=== PATIENT | female | born 1995 | race African-American/Black ===

== ENCOUNTER 2017-07-30 20:54 | Emergency (ER) | payer SELFPAY | END 2017-07-30 22:55 | disposition home or self-care (01) | LOC: SCSER 20:54 | DX: J02.0 Streptococcal pharyngitis (principal); F41.9 Anxiety disorder, unspecified | CPT/HCPCS: 87430; 99283 ==

== ENCOUNTER 2017-09-17 08:40 | Emergency (ER) | payer SELFPAY ==
[2017-09-17 09:09] LABS: Bilirubin Negative (Negative); Blood, Urine Small (Negative); Clarity Slightly Cloudy (Clear); Glucose, Urine (Dipstick) Negative (Negative); Leukocyte Large (Negative); Nitrite Negative (Negative); Protein, Urine (Dipstick) 30 mg/dL (Neg-Trace); Specific Gravity, Urine 1.025 (1.005-1.030); Urobilinogen 0.2 mg/dL (0.2-1.0)
[2017-09-17 09:11] LABS: Pregnancy Test - Urine (BHCG) Negative (Negative); Pregu Control Background? CLEAR/WHITE (CLR/WHITE); Pregu Control Bar Appear? YES (CONTROL BAR); Specific Gravity 1.025 (1.002-1.036)
[2017-09-17 09:16] LABS: WBC/HPF 21-50 HPF (0-3)
[2017-09-17 09:17] LABS: Bacteria/HPF 1+ HPF (None Seen)
[2017-09-18 23:16] LABS: Chlamydia by PCR Not Detected (NotDetected); GC by PCR Not Detected (NotDetected)
== END 2017-09-17 10:00 | disposition home or self-care (01) ==
LOC: SCSER 08:40
DX: B37.3 Candidiasis of vulva and vagina (principal); N39.0 Urinary tract infection, site not specified; F41.9 Anxiety disorder, unspecified
CPT/HCPCS: 81003; 81015; 81025; 87077; 87086; 87480; 87491; 87510; 87591; 87660; 99283

== ENCOUNTER 2017-11-21 13:37 | Emergency (ER) | payer SELFPAY ==
--- NOTE | 2017-11-21 14:25 | RAD ---
LEFT KNEE 4 VIEWS: HISTORY: Injury, left knee pain. FINDINGS/IMPRESSION: No acute fracture or dislocation is identified. POS: OFF
[2017-11-21] MEDS ORDERED: Ketorolac Tromethamine 30 MG/ML VIAL ONE (14:56)
== END 2017-11-21 15:08 | disposition home or self-care (01) ==
LOC: ERS 13:37
DX: S83.92XA Sprain of unspecified site of left knee, initial encounter (principal); F41.9 Anxiety disorder, unspecified; X50.1XXA Overexertion from prolonged static or awkward postures, initial encounter; Y93.01 Activity, walking, marching and hiking
CPT/HCPCS: 96372; J1885

== ENCOUNTER 2017-11-25 18:06 | Observation (INO) | payer SELFPAY ==
[~2017-11-25 18:06] MED LIST: ISOVUE-370 76%-LOCM 1 ML ONE
[2017-11-25] MEDS ORDERED: Morphine 4 MG/ML VIAL ONE ×3 (18:16→22:59)
[2017-11-25 18:44] LABS: #Lymphocytes 2.5 thou/uL (1.20-3.40); #Monocytes 0.8 thou/uL (0.11-0.59); #Neutrophils 3.8 thou/uL (1.40-6.50); %Basophils 0.4 % (0.0-1.0); %Eosinophils 0.3 % (0.0-10.0); %Lymphocytes 35.5 % (28.0-48.0); %Neutrophils 52.9 % (31.0-61.0); Hemoglobin 12.8 g/dL (12.0-16.0); Mean Corpuscular HGB CONC 32.7 g/dL (32.0-36.0); Mean Corpuscular Hemoglobin 30.2 pg (25.0-35.0); Mean Corpuscular Volume 92.5 fl (77.0-87.0); Mean Platelet Volume 7.3 fL (7.4-10.4); Platelet Count 158 thou/uL (130-400); RBC Distribution Width 11.9 % (11.5-14.5); Red Blood Cell (RBC) Count 4.25 mill/uL (4.00-5.20); White Blood Cell (WBC) Count 7.1 thou/uL (4.8-10.8)
[2017-11-25 18:51] LABS: BHCG - Serum Negative (NEGATIVE); Pregs Control Background? CLEAR/WHITE (CLR/WHITE); Pregs Control Bar Appear? YES (CONTROL BAR)
[2017-11-25 19:08] LABS: ALT (SGPT) 11 U/L (8-55); AST (SGOT) 19 U/L (5-34); Albumin 3.8 g/dL (3.5-5.0); Alkaline Phosphatase 58 U/L (40-150); Anion Gap 11 mmol/L (10-20); BUN (Urea Nitrogen) 5 mg/dL (7.0-18.7); Bilirubin, Total 0.5 mg/dL (0.2-1.2); Calc. Creatinine Clearance 0 mL/min (70-130); Calcium 8.7 mg/dL (7.8-10.44); Carbon Dioxide 27 mmol/L (22-29); Chloride 107 mmol/L (98-107); Estimated GFR-MDRD Greater than 90; Globulin 2.7 g/dL (2.4-3.5); Glucose 94 mg/dL (70-105); Lipase 21 U/L (8-78); Potassium 3.7 mmol/L (3.5-5.1); Protein, Total 6.5 g/dL (6.0-8.3); Sodium 141 mmol/L (136-145)
[2017-11-25 20:15] LABS: Bilirubin Negative (Negative); Blood, Urine Negative (Negative); Clarity CLEAR (Clear); Glucose, Urine (Dipstick) Negative (Negative); Leukocyte Small (Negative); Nitrite Negative (Negative); Protein, Urine (Dipstick) Trace mg/dL (Neg-Trace); Urobilinogen 0.2 mg/dL (0.2-1.0)
[2017-11-25 20:18] LABS: Bacteria/HPF None Seen HPF (None Seen); Hyaline Casts/LPF 0-3 HYALINE CAST LPF (0-3 Hyaline); Pathc Cast-AUWi Flag 0.43 (0-2.49)
--- NOTE | 2017-11-25 21:03 | CT ---
CT OF THE ABDOMEN AND PELVIS WITH IV CONTRAST: 11/25/17 INDICATION: Right lower quadrant abdominal pain. Concern for appendicitis. FINDINGS: There is a gas filled appendix in the right lower quadrant of the abdomen. No free fluid is evident w ithin the right lower quadrant of abdomen. Small amount of fluid is present within the pelvis. Bladde r, rectum, and perirectal soft tissues are unremarkable. There is a mild amount of retained stool wit hin the colon. Lung bases are clear. The liver, pancreas, adrenal glands, and spleen appear within normal limits. No definite acute osseou s abnormality is evident. IMPRESSION: 1. Normal appendix. 2. Small amount of free fluid in the pelvis likely physiologic in nature. POS: [facility]
--- NOTE | 2017-11-25 21:52 | ULT ---
TRANSABDOMINAL AND TRANSVAGINAL PELVIC ULTRASOUND: 11/25/17 INDICATION; Right lower quadrant abdominal pain. TECHNIQUE: Cormier scale, color doppler with vascular duplex with spectral analysis performed of the pelvis via tra nsabdominal and transvaginal approach. FINDINGS: The uterus measures 7.4 x 3.7 x 4.6 cm. The endometrial stripe measures 1.44 cm which is within rick l limits for premenopausal female. The right ovary measures 2 x 3.6 x 2.4 cm. There is normal follicles within the right ovary. There is some flow to the right ovary. The left ovary measured 4.2 x 2.2 x 3 cm. There is a 1.4 cm follicular cyst within the left ovary. Th ere is normal flow to the left ovary. There is mild free fluid in the pelvis. No definite abnormality seen within the right lower quadrant of the abdomen and the region of pain. IMPRESSION: 1. No acute sonographic abnormality within the pelvis. 2. Left ovarian follicular cyst measuring up to 1.4 cm. POS: [facility]
[2017-11-25] MEDS ORDERED: Ketorolac Tromethamine 30 MG/ML VIAL ONE (22:04)
[2017-11-26] MEDS ORDERED: Ondansetron PF 4 MG/2 ML Vial IVP PRN (00:16)
--- NOTE | 2017-11-26 00:44 | PDOC.FPRHP ---
- History of Present Illness Chief Complaint: RLQ pain History of Present Illness: Patient is a 22yo F with no PMH presenting with 3 day hx of abdominal pain that originally was diffuse in nature, but has since localized to RLQ. She has been seen yesterday and the day prior at [facility] with negative workup thus far. She reports an acute worsening of pain today that she describes as feeling as if something "popped" in her abdomen. Pain is associated with N/V, decreased appetite, and fever (Tmax 102). Patient had abnormal menses that was 2 weeks late and started on 11/16/17 and only lasted 3 days. Normally, periods are 7 days long and regular with mild cramping. Patient is sexually active with boyfriend >1 year, but recently found that he has been cheating on her. She reports no change in vaginal discharge, no dysuria, no diarrhea, and no hematochezia/melena. ED Course: In the ED, a transvaginal u/s and a CTabdomen/pelvis were done which were all negative. She was given 8mg morphine, torodol, and 1L NS. - Allergies/Adverse Reactions Allergies Allergy/AdvReac Type Severity Reaction Status Date / Time amoxicillin Allergy Intermediate rash, Verified 11/26/17 00:46 hives, swelling - Home Medications Medication Instructions Recorded Confirmed Type Acetaminophen With Codeine 1 - 2 tablet PO Q6HR PRN 11/26/17 11/26/17 History [Tylenol with Codeine #3] Azithromycin [Zithromax Tri-Hever] 500 mg PO DAILY 11/26/17 11/26/17 History - History PMHx: Anxiety PSHx: Dental surgery FHx: T2DM Social: Denies tobacco, alcohol, and drug use. PCP: none - Review of Systems General: reports: fever/chills, weight/appetite/sleep changes Eyes: denies: eye pain ENT: denies: nasal congestion, rhinorrhea Respiratory: denies: cough, congestion, shortness of breath, exercise intolerance Cardiovascular: denies: chest pain, palpitation, edema, paroxysmal nocturnal dyspnea, orthopnea Gastrointestinal: reports: nausea, vomiting, abdominal pain. denies: diarrhea, constipation, GI bleeding Genitourinary: denies: incontinence, dysuria, polyuria Skin: denies: rashes, lesions, jaundice, itching Musculoskeletal: denies: pain, tenderness, stiffness, swelling, arthritis/ arthralgias Neurological: reports: syncope. denies: numbness, seizure, weakness Psychological: denies: anxiety, depression - Vital signs BP: [] HR: [] RR: [] Tmax: [] Pox: []% on [] Wt: [] - Physical Exam Constitutional: NAD, awake, alert and oriented -Constitutional: lying in position HEENT: normocephalic and atraumatic, PERRLA, EOMI, no scleral icterus, grossly normal vision, grossly normal hearing Neck: supple Chest: no-tender to palpation Heart: RRR, normal S1/S2, no murmurs/rubs/gallops, pulses present Lungs: CTAB, no respiratory distress, no wheezing Abdomen: soft, bowel sounds present, no masses/distention -Abdomen: + guarding, rebound tenderness, ttp diffusely, but worsened in RLQ and RUQ, + murphys sign Musculoskeletal: normal structure, normal tone, ROM grossly normal Neurological: no focal deficit, CN II-XII intact Skin: no rash/lesions Heme/Lymphatic: no unusual bruising or bleeding Psychiatric: normal mood and affect FMR H&P: Results - Labs Result Diagrams: 11/25/17 18:33 11/25/17 18:33 Lab results: WBC 7.1 thou/uL (4.8-10.8) 11/25/17 18:33 Hgb 12.8 g/dL (12.0-16.0) 11/25/17 18:33 Hct 39.3 % (36.0-47.0) 11/25/17 18:33 MCV 92.5 fl (77.0-87.0) H 18 18:33 Plt Count 158 thou/uL (130-400) 11/25/17 18:33 Neutrophils % 52.9 % (31.0-61.0) 18 18:33 Sodium 141 mmol/L (136-145) 18 18:33 Potassium 3.7 mmol/L (3.5-5.1) 11/25/17 18:33 Chloride 107 mmol/L (98-107) 11/25/17 18:33 Carbon Dioxide 27 mmol/L (22-29) 04/17/18 18:33 BUN 5 mg/dL (7.0-18.7) L 11/25/17 18:33 Creatinine 0.85 mg/dL (0.6-1.1) 11/25/17 18:33 Glucose 94 mg/dL (70-105) 11/25/17 18:33 Calcium 8.7 mg/dL (7.8-10.44) 11/25/17 18:33 Total Bilirubin 0.5 mg/dL (0.2-1.2) 11/25/17 18:33 AST 19 U/L (5-34) 11/25/17 18:33 ALT 11 U/L (8-55) 11/25/17 18:33 Alkaline Phosphatase 58 U/L (40-150) 11/25/17 18:33 Serum Total Protein 6.5 g/dL (6.0-8.3) 11/25/17 18:33 Albumin 3.8 g/dL (3.5-5.0) 11/25/17 18:33 Lipase 21 U/L (8-78) 11/25/17 18:33 Urine Ketones Negative mg/dL (Negative) 11/25/17 20:01 Urine Blood Negative (Negative) 11/25/17 20:01 Urine Nitrite Negative (Negative) 11/25/17 20:01 Ur Leukocyte Esterase Small (Negative) H 11/25/17 20:01 Urine RBC 4-6 HPF (0-3) 11/25/17 20:01 Urine WBC 4-6 HPF (0-3) H 11/25/17 20:01 Ur Squamous Epith Cells 7-10 HPF (0-3) H 11/25/17 20:01 Urine Bacteria None Seen HPF (None Seen) 11/25/17 20:01 Laboratory Tests 11/25/17 18:33 Serum , Qual Negative - Radiology Interpretation CT scan - pelvis Status: image reviewed by me, report reviewed by me Additional comment: Normal appendix. small amount of free fluid in pelvis, likely physiological Other Status: image reviewed by me, report reviewed by me Additional comment: Transvaginal U/s: L cyst measuring 1.4cm FMR H&P: A/P - Problem List (1) RLQ abdominal pain Current Visit: No Status: Acute Code(s): R10.31 - RIGHT LOWER QUADRANT PAIN (2) RUQ pain Current Visit: No Status: Acute Code(s): R10.11 - RIGHT UPPER QUADRANT PAIN (3) Fever Current Visit: No Status: Acute Code(s): R50.9 - FEVER, UNSPECIFIED (4) Anxiety Current Visit: No Status: Acute Code(s): F41.9 - ANXIETY DISORDER, UNSPECIFIED (5) Nausea & vomiting Current Visit: No Status: Acute Code(s): R11.2 - NAUSEA WITH VOMITING, UNSPECIFIED - Plan 1. Abdominal Pain Likely 2/2 PID vs ruptured cyst - patient with fever and intractable pain, ruled out and appendicitis. - pelvic exam with inflamed appearing cervix, and thick white discharge with cervical motion tenderness - GC/C collected, pending - VP3 pending - Will treat empirically with Cefoxitin and Doxycycline - IV toradol and tylenol for pain 2. RUQ Pain - RUQ u/s to evaluate - concern for Roberto Azul with suspected PID 3. Anxiety - does not take meds at home, will monitor FMR H&P: Upper Level - Pertinent history 22 year old female presents with right sided pelvic pain for 2 to 3 days. Associated symptoms include fever up to 101.8 at home, chills, nausea, and vomiting. Denies chest pain, dyspnea, wheezing, cough, vaginal discharge, vaginal bleeding. No recent new sexual partners but she states her partner has been unfaithful recently. She reports poor appetite and poor fluid intake. Patient has been evaluated at multiple emergency departments for this problem. PMH Irregular heart rhythm PSH Dental surgery - Pertinent findings Vital Signs Tmax 98.7 RR 18 HR 63 BP 91/52 O2 sat 100% on RA Wegith 45 kg Physical Exam: General: NAD, AAOx4. Appears to be in pain Eyes: EOMI, PERRL, nonicteric ENT: Mucous membranes moist, oropharynx clear CV: RRR. No murmurs, rubs or gallops auscultated. Pulses full equal in all 4 extremities Respiratory: CTAB, no wheezing, rales, or rhonchi. Nonlabored Abdomen: ND, no guarding or rebound. Patient has voluntary but no rebound pain. Patient is tender in RUQ and RLQ. Extremities: No edema. Equal movements in all 4 extremities Skin: No rash or ulcer. No palpable Lesions Neuro: CN II XII grossly intact Psych: Mood and affect appropriate. Judgement and insight intact Imaging 1. Pelvic US - No acute processes. Left ovarian cyst measuring 1.[address] abdomen and pelvis with contract - Normal appendix. Small amount of free fluid in pelvis - Plan Date/Time: 11/26/17 0036 I, Kumar Nevarez DO, have evaluated this patient and agree with findings/plan as outlined by internal auditor resident. Pertinent changes/additions are listed here. A/P 22 year old female presents with: 1. Suspected pelvic inflammatory disease - Place in medical observation. Dr. Mi pelvic exam demonstrated cervical motion tenderness. Will start iv antibiotics and iv fluids. Patient does not meet sepsis criteria at this time. Currently in a fair amount of pain. Will treat with toradol. 2. Irregular heart beat Attending Addendum - Attending Addendum Date/Time: 11/26/17 0736 I personally evaluated the patient and discussed the management with Dr. Mccall on 11/25 I agree with the History, Examination, Assessment and Plan documented above with any addition or exceptions noted below- Briefly this is a 22 year old female with 3 day h/o intermittent lower abdominal pain. Initially started on left but now localized to RLQ. Pain has been associated with fever, N/V, and decreased appetite. Had been seen at [facility] with negative evaluation and given shot of abx (?Rocephin). PMH/PSH/Meds/ALL reviewed and agree with resident's documentation. T98.7 P68 Bp 114/66 RR18 Exam repeated by me and agree with resident's findings. CT exam - small amount of free fluid in pelvis; negative appendix; Pelvix USG- 1.4 cm left follicular cyst A/P: 1) Abdominal pain- possible PID based on copious vaginal discharge, CMT and adnexal tenderness- VP3 and GC/CT collected; continue IV abx
[2017-11-26 00:46] VITALS: BMI 19.7
[2017-11-26] MEDS ORDERED: cefOXitin 2 GM in Sodium Chloride 0.9% 100 ML IVPB SCH ×2 (01:00→06:00)
[2017-11-26] MEDS: Sodium Chloride 0.9% 1,000 ML IV SCH ×3 (01:06→22:45)
[2017-11-26] MEDS: Acetaminophen 325 MG TAB PO PRN ×2 (01:13→05:30)
[2017-11-26] MEDS: Ketorolac Tromethamine 30 MG/ML VIAL IVP SCH ×4 (02:54→20:08)
[2017-11-26] MEDS ORDERED: CEFOXITIN IVPB SCH (06:00)
--- NOTE | 2017-11-26 07:57 | ULT ---
RIGHT UPPER QUADRANT ULTRASOUND: Date: 11-26-17 Comparison: None. History: Nausea, vomiting, right upper quadrant pain. Technique: Multiplanar grayscale sonographic imaging of the right upper quadrant provided. FINDINGS: Imaged pancreas is unremarkable. The distal body and tail are obscured by bowel gas. There is no foca l liver lesion or intrahepatic biliary dilatation. The CBD measures 3 mm, within normal limits. The right kidney measures 11.3 cm in craniocaudal dimension and demonstrates no stone, hydronephrosis or mass. Gallbladder wall is normal in thickness with no pericholecystic fluid or gallstones seen. Manager Of Employee Relations reports a negative Carrera's sign. IMPRESSION: Unremarkable right upper quadrant ultrasound. POS: [facility]
--- NOTE | 2017-11-26 08:05 | PDOC.FM ---
- Subjective Subjective: Pt curled up in bed with severe pain. Pt crying. Pt very slow to move due to pain. Pt reports pain is worse than what it was prior to admission. Says pain medicine hasn't helped much. Denies fever or chills. Reports nausea. Denies vomiting overnight. Denies any blood in her urine. Denies any chest pain or SOB. Pt not feeling well and having bad pain in RLQ - Objective MAR Reviewed: Yes Vital Signs & Weight: Vital Signs (12 hours) Temp Pulse Resp BP Pulse Ox 11/26/17 05:20 98.9 F 53 L 16 92/57 L 97 11/26/17 01:01 98.4 F 53 L 20 11/26/17 00:00 98.4 F 63 20 99/65 100 I&O: 11/25/17 11/26/17 11/27/17 06:59 06:59 06:59 Intake Total 1510 Balance 1510 Result Diagrams: 11/25/17 18:33 11/25/17 18:33 Radiology Reviewed by me: Yes (Pelvis U/S negative. Abdomen U/S negative- no murphys, no problems with gal) Phys Exam - Physical Examination Constitutional: NAD HEENT: PERRLA, moist MMs Neck: no nodes, supple, full ROM Respiratory: no wheezing, no rales, no rhonchi, clear to auscultation bilateral Cardiovascular: RRR, no significant murmur, no rub Gastrointestinal: positive bowel sounds hard, Very tender to light palpation, guarding. Hard to assess rebound Musculoskeletal: no edema, pulses present Neurological: non-focal, normal sensation, moves all 4 limbs Lymphatic: no nodes Psychiatric: A&O x 3 Deviation from normal: Pt crying and in diffuse pain Skin: no rash, normal turgor, cap refill <2 seconds Dx/Plan - Plan Plan: 1. Abdominal Pain Likely 2/2 PID vs ruptured cyst - patient with fever and intractable pain upon admission, ruled out , appendicitis and cholecystitis or galbladder pain at this time - pelvic exam with inflamed appearing cervix, and thick white discharge with cervical motion tenderness - GC/C collected, pending - VP3- issac positive- will tx with fluconazole - Will treat empirically with Cefoxitin and Doxycycline - IV toradol, tylenol, and morphine for pain 2. RUQ/RLQ Pain - RUQ u/s negative, Pelvic u/s negative - concern for Roberto Parr with suspected PID 3. Anxiety - does not take meds at home, will monitor
[2017-11-26] MEDS: Morphine 4 MG/ML VIAL IV PRN ×2 (08:26→19:21)
[2017-11-26] MEDS: Ondansetron ODT 4 MG TAB PO PRN (08:38)
[2017-11-26] MEDS: Doxycycline 100 MG CAP PO SCH ×2 (09:45→20:08)
--- NOTE | 2017-11-26 12:04 | ADD-PRG ---
DATE OF SERVICE: 11/26/2017 This is an addendum to the note of Dr. Jorge Alberto Latham. Dutch Lilly is a 22-year-old black female who was admitted with probable PID and possibly a ruptur ed ovarian cyst. She is currently on antibiotics and pain control for her PID. Her abdominal CT and pelvic ultrasound did not show any evidence of tubo-ovarian abscess. She does have a small amount o f free fluid in the pelvis that is likely physiologic. For now, we will continue with antibiotics an d pain control. The appendix was well visualized on CT and normal.
[2017-11-26] MEDS: HYDROcodone/Acetaminophen 5/325 mg Tablet PO PRN ×3 (13:00→22:27)
[2017-11-26] MEDS: cefOXitin 2 GM, Syringe 1 ML in Sterile Water 10 ML SLOW IVP SCH ×2 (13:10→17:17)
[2017-11-26] MEDS ORDERED: Fluconazole 100 MG TAB PO SCH (13:45)
[2017-11-27 00:12] LABS: Chlamydia by PCR Not Detected (NotDetected); GC by PCR Not Detected (NotDetected)
[2017-11-27] MEDS: cefOXitin 2 GM, Syringe 1 ML in Sterile Water 10 ML SLOW IVP SCH ×4 (00:24→17:56)
[2017-11-27] MEDS: Sodium Chloride 0.9% 1,000 ML IV SCH ×2 (00:25→20:01)
[2017-11-27] MEDS: Ketorolac Tromethamine 30 MG/ML VIAL IVP SCH ×4 (03:15→20:00)
[2017-11-27] MEDS: Morphine 4 MG/ML VIAL IV PRN (05:12)
[2017-11-27] MEDS ORDERED: Lorazepam 1 MG TAB PO ONE (07:32)
[2017-11-27] MEDS: Ondansetron ODT 4 MG TAB PO PRN ×2 (08:20→20:00)
[2017-11-27] MEDS: Doxycycline 100 MG CAP PO SCH ×2 (08:28→20:00)
--- NOTE | 2017-11-27 08:44 | PDOC.FM ---
- Subjective Subjective: Pt reports still having sever abdominal pain. Says it radiates to her back at this time as well. Report being nauseated. Per nurse is tolerating Po well. Denies any fever or chills. Denies any SOB. Denies any diarrhea or constipation. Pt reports pain as constantly aching with sharp shooting pain to the back. - Objective MAR Reviewed: Yes Vital Signs & Weight: Vital Signs (12 hours) Temp Resp BP Pulse Ox 11/27/17 05:00 98.9 F 17 107/72 99 Weight Admit Weight 52.163 kg Weight 52.163 kg I&O: 11/26/17 11/27/17 11/28/17 06:59 06:59 06:59 Intake Total 1510 1810 Balance 1510 1810 Result Diagrams: 11/25/17 18:33 11/25/17 18:33 EKG Reviewed by me: Yes Radiology Reviewed by me: Yes (No new imaging to review) Phys Exam - Physical Examination Constitutional: NAD HEENT: PERRLA Neck: no nodes, no JVD, supple, full ROM Respiratory: no wheezing, no rales, no rhonchi Cardiovascular: RRR, no significant murmur, no rub Gastrointestinal: soft, positive bowel sounds very tender to mild palpation in R quadrants. CVA tenderness noted should be note pt very sensitive to pain. Everything positive Musculoskeletal: no edema, pulses present Neurological: non-focal, normal sensation, moves all 4 limbs Lymphatic: no nodes Psychiatric: normal affect, A&O x 3 Skin: no rash, normal turgor, cap refill <2 seconds Dx/Plan (1) Nausea & vomiting Code(s): R11.2 - NAUSEA WITH VOMITING, UNSPECIFIED Status: Acute (2) RLQ abdominal pain Code(s): R10.31 - RIGHT LOWER QUADRANT PAIN Status: Acute (3) RUQ pain Code(s): R10.11 - RIGHT UPPER QUADRANT PAIN Status: Acute - Plan Plan: 1. Abdominal Pain Likely 2/2 PID vs ruptured cyst - patient with fever and intractable pain upon admission, ruled out , appendicitis and cholecystitis or galbladder pain at this time - pelvic exam with inflamed appearing cervix, and thick white discharge with cervical motion tenderness - GC/C collected-negative - VP3- issac positive- will tx with fluconazole - Will treat empirically with Cefoxitin and Doxycycline - IV toradol, tylenol, morphine and norco for pain. Pain still severe. May need to increase norco at this time. Will also try some nausea medicine and maybe bentyl as well. Also tried alprazolam to see if helps her relax 2. RUQ/RLQ Pain - RUQ u/s negative, Pelvic u/s negative - concern for Roberto Parr 3. Anxiety - does not take meds at home, will monitor
[2017-11-27 09:33] LABS: #Eosinphils 0.1 thou/uL (0.0-0.7); #Lymphocytes 1.4 thou/uL (1.20-3.40); #Monocytes 0.4 thou/uL (0.11-0.59); #Neutrophils 3.3 thou/uL (1.40-6.50); %Basophils 0.7 % (0.0-1.0); %Eosinophils 1.2 % (0.0-10.0); %Lymphocytes 27.8 % (28.0-48.0); %Monocytes 6.7 % (0.0-4.0); %Neutrophils 63.6 % (31.0-61.0); Anion Gap 10 mmol/L (10-20); BUN (Urea Nitrogen) Less than 4 mg/dL (7.0-18.7); Calc. Creatinine Clearance 97 mL/min (70-130); Calcium 8.4 mg/dL (7.8-10.44); Carbon Dioxide 26 mmol/L (22-29); Chloride 111 mmol/L (98-107); Estimated GFR-MDRD Greater than 90; Glucose 83 mg/dL (70-105); Hemoglobin 11.4 g/dL (12.0-16.0); Mean Corpuscular HGB CONC 32.8 g/dL (32.0-36.0); Mean Corpuscular Hemoglobin 30.1 pg (25.0-35.0); Mean Corpuscular Volume 91.7 fl (77.0-87.0); Mean Platelet Volume 7.7 fL (7.4-10.4); Platelet Count 136 thou/uL (130-400); Potassium 3.4 mmol/L (3.5-5.1); RBC Distribution Width 11.6 % (11.5-14.5); Red Blood Cell (RBC) Count 3.78 mill/uL (4.00-5.20); Sodium 144 mmol/L (136-145); White Blood Cell (WBC) Count 5.2 thou/uL (4.8-10.8)
[2017-11-27] MEDS: Dicyclomine 10 MG CAP PO SCH ×4 (10:34→20:00)
[2017-11-27] MEDS: HYDROcodone/Acetaminophen 5/325 mg Tablet PO PRN (10:36)
[2017-11-27] MEDS ORDERED: Lorazepam 1 MG TAB PO PRN (11:36)
--- NOTE | 2017-11-27 12:30 | ADD-PRG ---
ADDENDUM DATE OF SERVICE: 11/27/2017 Please add as an addendum to the note of Dr. Latham. Ms. Lilly is resting quietly, but still compl aining of abdominal pain. Her physical findings seem much less than her expressed degree of pain. H owever, we will consult LINER INSERTER too since the patient does not seem to be improving with adequate treatme nt for PID. Consideration could be given to laparoscopy, but again there seems to be some functional overlay to symptoms. Her white count is normal and she is afebrile. She was given one dose of Ativ an with good results and is resting quietly at this time. Her vital signs are stable with a blood pr essure of 100/64, pulse rate is 63 and regular. She is afebrile and has been since admission.
[2017-11-27 13:42] LABS: HIV (1/2) Antibody/Antigen Non-Reactive (NonReactive); HIV 1/2 INDEX 0.11 S/CO (<1.00); Syphilis Antibody Nonreactive (Nonreactive); Syphilis Antibody Index 0.04 S/CO (<1.00 Non-Reactive)
--- NOTE | 2017-11-27 14:23 | CON ---
DATE OF CONSULTATION: 11/27/2017 CONSULTING PHYSICIAN: Jose Lundy M.D. ATTENDING PHYSICIAN: Latasha Maloney M.D. REASON FOR CONSULTATION: Right lower quadrant pain. HISTORY OF PRESENT ILLNESS: Ms. Lilly is a 22-year-old black G0, P0, last menstrual period 008, who has been admitted to the hospital by the [facility] for recurrent abdominal gilda n. Patient had been seen 3 times over at [facility] in the emergency room for her lower abdomin al pain and then presented here for further evaluation. She was admitted by the [facility]. Findings on admission demonstrated a CT that showed a normal appendix and a small amount of pelvic fluid. Pelvic ultrasound demonstrated flow to both ovaries with a small left ovarian cyst. F indings on exam did show vaginal discharge and cervical motion tenderness, and as a result, she was a dmitted and placed on Mefoxin and doxycycline. Since that time, the patient reports that her pain velazquez s not improved and she continues to require regular p.o. pain medication to control. She states that she has tolerated a regular diet since her admission. PAST OBSTETRICAL HISTORY: The patient has never been . She reports that her periods have be en irregular in the past and that she had a period on the 8th of this month that was slightly less in duration of flow. PAST MEDICAL HISTORY: Unremarkable. PAST SURGICAL HISTORY: [place] teeth. ALLERGIES: AMOXICILLIN, which she says gives her swelling. MEDICATIONS: On admission, doxycycline. SOCIAL HISTORY: She denies tobacco or alcohol use. FAMILY HISTORY: Unremarkable. REVIEW OF SYSTEMS: At the present time, she reports, intermittent right and left-sided abdominal gilda n, but she denies nausea, vomiting, fever, or chills. PHYSICAL EXAMINATION: VITAL SIGNS: This morning, show a blood pressure of 100/64, O2 saturation of 96% on room air, pulse of 63, and a temperature of 98.5. It appears that she has been afebrile throughout her hospital cour se this admission. GENERAL: She is sleepy and appears in no apparent distress. ABDOMINAL EXAM: Her abdomen is soft and flat. She does report discomfort to deep palpation on both the right and left sides. There does not appear to be any guarding or rebound. LABORATORY DATA: I did review her ultrasound at the time of admission, and although there was a smal l 1.4 cm follicular cyst on the left side, there did appear to be flow to both ovaries. ASSESSMENT: Abdominal pain, currently on antibiotics for pelvic inflammatory disease. GC and chlamy dorie cultures have both returned negative. PLAN: At this time, I would continue her present management of antibiotics and simply observe closel y. Should her pain continue, consideration of a GI consult may need to be made.
[2017-11-27] MEDS ORDERED: Potassium Chloride 20 MEQ TAB PO SCH (14:45)
[2017-11-27] MEDS: HYDROcodone/Acetaminophen 7.5/325 mg Tablet PO PRN (14:51)
[2017-11-28] MEDS: Morphine 4 MG/ML VIAL IV PRN (00:21)
[2017-11-28] MEDS: cefOXitin 2 GM, Syringe 1 ML in Sterile Water 10 ML SLOW IVP SCH ×4 (00:21→20:32)
[2017-11-28] MEDS: Ondansetron ODT 4 MG TAB PO PRN ×3 (02:34→23:05)
[2017-11-28] MEDS: Ketorolac Tromethamine 30 MG/ML VIAL IVP SCH ×4 (02:34→23:05)
[2017-11-28] MEDS: Sodium Chloride 0.9% 1,000 ML IV SCH (05:03)
[2017-11-28] MEDS: HYDROcodone/Acetaminophen 7.5/325 mg Tablet PO PRN (05:04)
--- NOTE | 2017-11-28 08:58 | PDOC.FM ---
- Objective Vital Signs & Weight: Vital Signs (12 hours) Temp Pulse Resp BP Pulse Ox 11/28/17 07:50 98.8 F 59 L 16 105/68 99 11/28/17 04:00 98.8 F 76 16 105/69 98 11/28/17 00:00 98.4 F 50 L 16 105/71 98 Weight Admit Weight 52.163 kg Weight 52.163 kg I&O: 11/27/17 11/28/17 11/29/17 06:59 06:59 06:59 Intake Total 1810 10 Balance 1810 10 Result Diagrams: 11/27/17 08:53 11/27/17 08:53 Dx/Plan (1) Nausea & vomiting Code(s): R11.2 - NAUSEA WITH VOMITING, UNSPECIFIED Status: Acute (2) RLQ abdominal pain Code(s): R10.31 - RIGHT LOWER QUADRANT PAIN Status: Acute (3) RUQ pain Code(s): R10.11 - RIGHT UPPER QUADRANT PAIN Status: Acute - Plan Plan: 1. Abdominal Pain Likely 2/2 PID vs ruptured cyst - patient with fever and intractable pain upon admission, ruled out , appendicitis and cholecystitis or galbladder pain at this time - pelvic exam with inflamed appearing cervix, and thick white discharge with cervical motion tenderness - GC/C collected-negative - VP3- issac positive- tx w/ one time dose Diflucan - Will treat empirically with Cefoxitin and Doxycycline - IV toradol, tylenol, morphine and norco for pain. Pain still severe. May need to increase norco at this time. Will also try some nausea medicine and maybe bentyl as well. Also tried alprazolam to see if helps her relax. -GENERAL SCIENCE TEACHER-Dr. Lundy consulted- continue regiment as above. No other recs -Consulted GI- Dr. Wu- Will follow recs 2. RUQ/RLQ Pain - RUQ u/s negative, Pelvic u/s negative 3. Anxiety - does not take meds at home, will monitor
[2017-11-28] MEDS: Doxycycline 100 MG CAP PO SCH ×2 (09:25→20:31)
[2017-11-28] MEDS: Dicyclomine 10 MG CAP PO SCH ×4 (09:26→20:31)
[2017-11-28] MEDS: Polyethylene Glycol 3350 17 GM Packet PO SCH (09:26)
[2017-11-28 10:09] LABS: Anion Gap 11 mmol/L (10-20); BUN (Urea Nitrogen) 5 mg/dL (7.0-18.7); Calc. Creatinine Clearance 100 mL/min (70-130); Calcium 8.9 mg/dL (7.8-10.44); Carbon Dioxide 25 mmol/L (22-29); Chloride 110 mmol/L (98-107); Estimated GFR-MDRD Greater than 90; Glucose 79 mg/dL (70-105); Potassium 3.8 mmol/L (3.5-5.1); Sodium 142 mmol/L (136-145)
[2017-11-28] MEDS ORDERED: traMADol HCl 50 MG TAB PO PRN (10:57)
[2017-11-28] MEDS ORDERED: Simethicone Chewable 80 MG TAB PO PRN (10:58)
[2017-11-28] MEDS ORDERED: Acetaminophen 500 MG TAB PO SCH (12:00)
[2017-11-28] MEDS ORDERED: Ibuprofen 800 MG TAB PO SCH (14:00)
--- NOTE | 2017-11-28 14:28 | ADD-PRG ---
DATE OF SERVICE: 11/28/2017 ADDENDUM This is an addendum to the note of Dr. Jorge Alberto Latham. Ms. Lilly is resting quietly and comfortably in bed. She still complains of abdominal pain, but ov erall this seems to be improved. She was seen by ACCOUNTING CLERKS SUPERVISOR who felt we were doing the right thing and it s hould continue. We will have GI to assess her. Again, I believe there might be some anxiety compone nt to her symptomatology. We will stop her IV morphine, reduce Narcan and increase ibuprofen while c ontinuing her treatment for PID.
[2017-11-28] MEDS ORDERED: Cosyntropin 250 MCG VIAL SLOW IVP SCH (16:00)
[2017-11-28] MEDS: Metoclopramide 10 MG/10 ML UDCUP PO SCH ×2 (17:30→20:29)
[2017-11-28] MEDS: HYDROcodone/Acetaminophen 5/325 mg Tablet PO PRN (17:30)
[2017-11-28] MEDS ORDERED: GoLYTELY 4,000 ml Bottle PO SCH (17:45)
[2017-11-28] MEDS ORDERED: diphenhydrAMINE 25 MG CAP PO PRN (18:28)
[2017-11-28] MEDS: Clotrimazole 2% 3 Day Vag Cr 22.2 GM TUBE VAG SCH (20:33)
--- NOTE | 2017-11-28 20:38 | CON ---
DATE OF CONSULTATION: 11/28/2017 GI INPATIENT CONSULTATION NOTE REASON FOR CONSULTATION: Abdominal pain. HISTORY OF PRESENT ILLNESS: Dutch Lilly is a 22-year-old -[place]ag[place] woman who was admitted to the hospital 3 days ago with abdominal pain. She reports no prior history of GI illness or signif icant abdominal pain in the past. She says that 5 days ago in the morning, she had the fairly acute onset of abdominal pain which started in the right lower quadrant and then shot up to start involving the right upper quadrant as well. There was associated nausea and vomiting. The pain never really resolved over several days. She went to the [facility] ER on three occasions and was diagnosed with pelvic inflammatory disease and started on some antibiotics; however, the pain worsened, so she presented here 3 days ago. She says that yesterday she felt a sudden worsening of the pain, a poppin g sensation in the right lower quadrant. Her last episode of vomiting was last night. She says her appetite has declined and she has really not had much to eat today. Notably, through all of this, nasim ferris states her bowel movements have not changed at all. There is no melena or hematochezia. She is velazquez ving basically 1 bowel movement per day. She denies any heartburn symptoms. There is no pain on the left side of the abdomen except that when the left side is palpated, the right side will feel worse. She has had multiple studies while here including pelvic and abdominal ultrasound as well as CT of the abdomen and pelvis which have essentially been unremarkable, but on pelvic exam, she did have cer vical motion tenderness and she has been treated with Diflucan for this. We are consulted due to con tinuation of intractable pain out of proportion to all physical and exam findings so far. REVIEW OF SYSTEMS: Full review of systems including constitutional, head, eyes, ears, nose, throat, GI, , cardiovascular, respiratory, musculoskeletal, and neurologic systems is negative except as no ai in HPI. PAST MEDICAL HISTORY: Anxiety. PAST SURGICAL HISTORY: Dental surgery. FAMILY HISTORY: Significant for diabetes. SOCIAL HISTORY: No smoking, alcohol, or drug use. ALLERGIES: AMOXICILLIN caused hives. HOME MEDICATIONS: The patient was on azithromycin at the time of admission also Tylenol #3 p.r.n. CURRENT MEDICATIONS INPATIENT: Include Tylenol p.r.n., Alamo p.r.n., cefoxitin 2 grams IV q.6 hours, Bentyl 10 mg q.i.d., doxycycline 100 mg b.i.d., Ativan p.r.n., Reglan 10 mg with meals, Zofran 4 mg q.6 h. p.r.n., MiraLax 17 grams daily. PHYSICAL EXAMINATION: VITAL SIGNS: Temperature 98.8, pulse 59, blood pressure 105/68, 99% oxygen saturation on room air. GENERAL: A 22-year-old woman lying in bed comfortably in no distress. MENTAL: Alert and oriented, pleasant and conversational, can give details about her history. SKIN: No jaundice, no rashes were palpable. EYES: No scleral icterus. Extraocular movements are intact. ENT: Mucous membranes moist, no oral lesions. LYMPH: No submandibular, supraclavicular lymphadenopathy. THYROID: Nontender to palpation. HEART: Regular rate and rhythm. LUNGS: Clear to auscultation bilaterally. ABDOMEN: Bowel sounds are present. The patient reports exquisite tenderness to even light palpation of the abdomen on the right side. There is voluntary guarding with palpation throughout, but partic ularly on the right side. She says that palpation of the left side makes the right side hurt. EXTREMITIES: No peripheral edema. VESSELS: Radial pulses 2+ bilaterally. NEUROLOGICAL: Cranial nerves II through XII intact bilaterally. No focal deficits. LABORATORY STUDIES: Syphilis serology is negative. Chlamydia and gonorrhea serology negative. HIV negative. UA negative. Sodium 142, potassium 3.8, BUN 5, creatinine 0.74. Serum test neg ative. Procalcitonin 0.02. Lipase only 21. LFTs all normal with total bilirubin 0.5, alkaline phos phatase 58, AST 19, ALT 11, albumin 3.8. WBC 5.2, hemoglobin 11.4, hematocrit 34.6, platelets 136. ESR normal at 7. IMAGING STUDIES: CT of the abdomen and pelvis demonstrated normal appendix and a small amount of renetta e fluid in the pelvis, which was felt to be likely physiologic in nature. Specifically, the liver, p ancreas, and spleen appeared in normal limits. Bladder, rectum and perirectal soft tissues were unre markable. Abdominal ultrasound was unremarkable. Gallbladder appeared normal. Common bile duct was normal measuring 3 mm. Pelvic ultrasound showed a left ovarian cyst measuring 1.4 cm. No acute son ographic abnormality in the pelvis. ASSESSMENT AND PLAN: 1. Right lower quadrant pain. 2. Right upper quadrant pain. 3. Pelvic inflammatory disease. The patient's degree of pain is indeed felt to be out of proportion to what would be expected from he r pelvic inflammatory disease which is being treated, and out of proportion to all other findings. N otably, she really does not have any colitic symptoms such as diarrhea or blood in the stool. Note, the CT scan did not demonstrate any bowel inflammatory disease. However, I do think it would be reas onable to proceed with endoscopic investigation as the next step in workup given the intractable natu re of her pain. I frankly discussed with the patient that this all very well may be normal, but is w orth looking into. The patient agrees and desires to proceed. We will administer bowel preparation this evening in anticipation of EGD and colonoscopy tomorrow. Further recommendations following endo vahe. Thank you for the consultation. Please call back with questions or concerns.
[2017-11-29] MEDS: cefOXitin 2 GM, Syringe 1 ML in Sterile Water 10 ML SLOW IVP SCH ×5 (00:30→23:39)
[2017-11-29] MEDS: Ketorolac Tromethamine 30 MG/ML VIAL IVP SCH ×4 (05:47→23:38)
--- NOTE | 2017-11-29 07:05 | PDOC.FM ---
- Subjective Subjective: Pt reports pain still being severe. Denies any improvement. Says was not able to tolerate bowel prep as she continuously threw up and had nausea. Pain still sharp and crampy. Denies any fever or chills. Denies any SOB or chest pain. - Objective MAR Reviewed: Yes Vital Signs & Weight: Vital Signs (12 hours) Temp Pulse Resp BP Pulse Ox 11/28/17 20:00 97.5 F L 55 L 16 96/59 L 98 Weight Admit Weight 52.163 kg Weight 52.163 kg I&O: 11/28/17 11/29/17 11/30/17 06:59 06:59 06:59 Intake Total 10 480 Balance 10 480 Result Diagrams: 11/27/17 08:53 11/28/17 09:31 Radiology Reviewed by me: Yes (No new imaging to review) <Jorge Alberto Latham - Last Filed: 11/29/17 07:03> - Objective Vital Signs & Weight: Vital Signs (12 hours) Temp Pulse Resp BP Pulse Ox 11/29/17 09:00 98.5 F 61 16 11/29/17 07:27 98.5 F 61 16 112/71 98 Weight Admit Weight 52.163 kg Weight 52.163 kg I&O: 11/28/17 11/29/17 11/30/17 06:59 06:59 06:59 Intake Total 10 480 Balance 10 480 Result Diagrams: 11/29/17 07:14 11/29/17 07:14 <Estrella Montelongo - Last Filed: 11/29/17 10:26> Phys Exam - Physical Examination Constitutional: NAD HEENT: PERRLA, moist MMs, sclera anicteric Neck: no nodes, no JVD, supple, full ROM Respiratory: no wheezing, no rales, no rhonchi, clear to auscultation bilateral Cardiovascular: RRR, no significant murmur, no rub Gastrointestinal: soft, no distention, positive bowel sounds Diffuse tenderness to palpation in all 4 quadrants. Pain severe per pt Musculoskeletal: no edema, pulses present Neurological: non-focal, normal sensation, moves all 4 limbs Lymphatic: no nodes Psychiatric: A&O x 3 Skin: no rash, normal turgor, cap refill <2 seconds <Jorge Alberto Latham - Last Filed: 11/29/17 07:03> Dx/Plan (1) Pelvic inflammatory disease Code(s): N73.9 - FEMALE PELVIC INFLAMMATORY DISEASE, UNSPECIFIED Status: Suspected (2) Nausea & vomiting Code(s): R11.2 - NAUSEA WITH VOMITING, UNSPECIFIED Status: Acute (3) RLQ abdominal pain Code(s): R10.31 - RIGHT LOWER QUADRANT PAIN Status: Acute (4) RUQ pain Code(s): R10.11 - RIGHT UPPER QUADRANT PAIN Status: Acute - Plan Plan: 1. Abdominal Pain Likely 2/2 PID vs ruptured cyst - patient with fever and intractable pain upon admission, ruled out , appendicitis and cholecystitis or galbladder pain at this time - pelvic exam with inflamed appearing cervix, and thick white discharge with cervical motion tenderness - GC/C collected-negative - VP3- issac positive- tx w/ one time dose Diflucan and monistat -Procalcitonin negative - Will treat empirically with Cefoxitin and Doxycycline - IV toradol, tylenol, and norco for pain. Pain still severe. Yesterday tried to switch pain medicine to oral Tylenol, Ibuprofen carlos and tramadol to see if she could go home with regimen and continue to fight suspected infection. Also her pulse and BP were a little bit lower as she had been on a few days of constant norco and morphine. With vitals we wanted to try and switch pain regimenPts pain got worse so at that time switched her back to norco, tylenol and IV toradol. Did not continue the IV morphine as her pulse and bp were getting a little low the day prior. -GUEST SERVICES ASSOCIATE-Dr. Lundy consulted- continue regiment as above. No other recs -Consulted GI- Dr. Wu- Will follow recs plan for EGD and colonoscopy as pain out of proportion to suspected problem -May have some underlying somatic pain going on as well. Denies any stressors in life at this time. Ativan PRN to see if helps with pain. 2. RUQ/RLQ Pain - RUQ u/s negative, Pelvic u/s negative 3. Anxiety - does not take meds at home, will monitor <Jorge Alberto Latham - Last Filed: 11/29/17 07:03> Attending Addendum - Attending Addendum Date/Time: 11/29/17 1023 I personally evaluated the patient and discussed the management with Dr. Latham. I agree with the History, Examination, Assessment and Plan documented above with any addition or exceptions noted below. This morning patient's abdomen is mildly tender to palpation of ruq and rlq without guarding or rebound tenderness. She has not had more than a few sips of golytely due to nausea. I have encouraged her to try again with the prep as it is necessary before doing the scope. <Estrella Montelongo - Last Filed: 11/29/17 10:26>
[2017-11-29] MEDS ORDERED: Promethazine HCl 25 MG/ML VIAL IM PRN (07:09)
[2017-11-29 07:31] LABS: #Eosinphils 0.1 thou/uL (0.0-0.7); #Lymphocytes 1.6 thou/uL (1.20-3.40); #Monocytes 0.3 thou/uL (0.11-0.59); %Basophils 0.6 % (0.0-1.0); %Eosinophils 3.3 % (0.0-10.0); %Lymphocytes 39.4 % (28.0-48.0); %Monocytes 7.7 % (0.0-4.0); Hemoglobin 11.5 g/dL (12.0-16.0); Mean Corpuscular HGB CONC 33.3 g/dL (32.0-36.0); Mean Corpuscular Hemoglobin 30.6 pg (25.0-35.0); Mean Corpuscular Volume 91.8 fl (77.0-87.0); Platelet Count 163 thou/uL (130-400); RBC Distribution Width 11.6 % (11.5-14.5); Red Blood Cell (RBC) Count 3.77 mill/uL (4.00-5.20)
[2017-11-29 07:52] LABS: ALT (SGPT) 49 U/L (8-55); AST (SGOT) 25 U/L (5-34); Albumin 3.4 g/dL (3.5-5.0); Alkaline Phosphatase 62 U/L (40-150); Anion Gap 9 mmol/L (10-20); BUN (Urea Nitrogen) 4 mg/dL (7.0-18.7); Bilirubin, Total 0.4 mg/dL (0.2-1.2); Calc. Creatinine Clearance 103 mL/min (70-130); Calcium 9.1 mg/dL (7.8-10.44); Carbon Dioxide 28 mmol/L (22-29); Chloride 107 mmol/L (98-107); Estimated GFR-MDRD Greater than 90; Globulin 2.4 g/dL (2.4-3.5); Glucose 86 mg/dL (70-105); Potassium 3.7 mmol/L (3.5-5.1); Protein, Total 5.8 g/dL (6.0-8.3); Sodium 140 mmol/L (136-145)
[2017-11-29] MEDS: Polyethylene Glycol 3350 17 GM Packet PO SCH (08:29)
[2017-11-29] MEDS: Dicyclomine 10 MG CAP PO SCH ×4 (08:46→21:04)
[2017-11-29] MEDS: Doxycycline 100 MG CAP PO SCH ×2 (08:49→21:04)
[2017-11-29] MEDS: Metoclopramide 10 MG/10 ML UDCUP PO SCH ×4 (08:49→21:04)
[2017-11-29] MEDS: Ondansetron ODT 4 MG TAB PO PRN (13:00)
--- NOTE | 2017-11-29 13:08 | PRG ---
DATE OF SERVICE: 11/29/2017 SUBJECTIVE: Dutch did not drink a bowel prep last night. She has had about quarter of it. She has not had any bowel movement results from this. She says drinking the prep makes her nauseated and he r abdominal pain on the right side continues unabated. OBJECTIVE: VITAL SIGNS: Temperature 98.5, pulse 61, blood pressure 112/71, and 98% oxygen saturation on room ai r. GENERAL: No acute distress. HEART: Regular rate and rhythm. LUNGS: Clear to auscultation bilaterally. ABDOMEN: Bowel sounds present. Tender to palpation on the right side. EXTREMITIES: No peripheral edema. LABORATORY STUDIES: WBC 4.0, hemoglobin 11.5, platelets 163. Sodium 140, potassium 3.7, BUN 4, and creatinine 0.72. ASSESSMENT AND PLAN: 1. Right lower quadrant pain. 2. Right upper quadrant pain. 3. Pelvic inflammatory disease. I frankly discussed with the patient that there is no point in proceeding with endoscopic investigati on unless she is able to complete the bowel prep. She is willing to try again to complete the bowel prep through the course of today. If she can finish this by midnight, then we can get the procedure done tomorrow morning. We would advise she receive antiemetics as needed in order to get this done.
[2017-11-29] MEDS ORDERED: Calcium Carbonate 500 MG ChewTAB PO PRN (13:37)
[2017-11-29] MEDS: HYDROcodone/Acetaminophen 5/325 mg Tablet PO PRN (15:27)
[2017-11-29] MEDS: Clotrimazole 2% 3 Day Vag Cr 22.2 GM TUBE VAG SCH (21:07)
[2017-11-30] MEDS: cefOXitin 2 GM, Syringe 1 ML in Sterile Water 10 ML SLOW IVP SCH ×3 (06:01→17:01)
[2017-11-30] MEDS: Ketorolac Tromethamine 30 MG/ML VIAL IVP SCH ×3 (06:01→17:01)
--- NOTE | 2017-11-30 07:05 | PDOC.FM ---
Addendum entered and electronically signed by Jorge Alberto Latham MD 11/30/17 07:07 : 1. Abdominal Pain Likely 2/2 PID vs ruptured cyst - patient with fever and intractable pain upon admission, ruled out , appendicitis and cholecystitis or galbladder pain at this time - pelvic exam with inflamed appearing cervix, and thick white discharge with cervical motion tenderness on admission - GC/C collected-negative - VP3- issac positive- tx w/ two doses Diflucan and monistat -Procalcitonin negative - Will treat empirically with Cefoxitin and Doxycycline - IV toradol, tylenol, and norco for pain. Pain still severe. Other day tried to switch pain medicine to oral Tylenol, Ibuprofen carlos and tramadol to see if she could go home with regimen and continue to fight suspected infection. Also her pulse and BP were a little bit lower as she had been on a few days of constant norco and morphine. With vitals we wanted to try and switch pain regimenPts pain got worse so at that time switched her back to norco, tylenol and IV toradol. Did not continue the IV morphine as her pulse and bp were getting a little low the day prior. -REAL ESTATE REP-Dr. Lundy consulted- continue regiment as above. No other recs -Consulted GI- Dr. Wu- Will follow recs plan for EGD and colonoscopy as pain out of proportion to suspected problem -May have some underlying somatic pain going on as well. Denies any stressors in life at this time. Ativan PRN to see if helps with pain. 2. RUQ/RLQ Pain - RUQ u/s negative, Pelvic u/s negative 3. Anxiety - does not take meds at home, will monitor Original Note: - Subjective Subjective: Pt reports pain in the RQ of the abdomen still. Reports pain at a 7. Which is an improvement from other days. Says pain is still crampy and achy. Pt has been drinking golytely in hope for scopes today. Pt been tolerating. Has not had nausea or vomiting. Denies any fever or chills. Denies any sob. Denies any chest pain. Denies any acute events overnight. - Objective MAR Reviewed: Yes Vital Signs & Weight: Vital Signs (12 hours) Temp Pulse Resp BP Pulse Ox 11/29/17 20:00 97.7 F 61 18 11/29/17 19:48 97.7 F 61 18 109/72 99 Weight Admit Weight 52.163 kg Weight 52.163 kg I&O: 11/29/17 11/30/17 12/01/17 06:59 06:59 06:59 Intake Total 480 Balance 480 Result Diagrams: 11/29/17 07:14 11/29/17 07:14 Radiology Reviewed by me: Yes (no new imaging to review) <Jorge Alberto Latham - Last Filed: 11/30/17 07:04> - Objective Vital Signs & Weight: Vital Signs (12 hours) Temp Pulse Resp BP Pulse Ox 11/30/17 08:00 98.6 F 66 16 103/68 99 Weight Admit Weight 52.163 kg Weight 52.163 kg I&O: 11/29/17 11/30/17 12/01/17 06:59 06:59 06:59 Intake Total 480 Balance 480 Result Diagrams: 11/30/17 07:41 11/30/17 07:41 <Estrella Montelongo - Last Filed: 11/30/17 12:40> Phys Exam - Physical Examination Constitutional: NAD HEENT: PERRLA, moist MMs Neck: no nodes, supple, full ROM Respiratory: no wheezing, no rales, no rhonchi, clear to auscultation bilateral Cardiovascular: RRR, no significant murmur, no rub Gastrointestinal: soft, no distention, positive bowel sounds tender to palpation in RUQ and RLQ, hard to assess mcburneys mcmurphys Musculoskeletal: no edema, pulses present Neurological: non-focal, normal sensation, moves all 4 limbs Lymphatic: no nodes Psychiatric: normal affect, A&O x 3 Skin: no rash, normal turgor, cap refill <2 seconds <Jorge Alberto Latham - Last Filed: 11/30/17 07:04> Dx/Plan (1) Pelvic inflammatory disease Code(s): N73.9 - FEMALE PELVIC INFLAMMATORY DISEASE, UNSPECIFIED Status: Suspected (2) Nausea & vomiting Code(s): R11.2 - NAUSEA WITH VOMITING, UNSPECIFIED Status: Acute (3) RLQ abdominal pain Code(s): R10.31 - RIGHT LOWER QUADRANT PAIN Status: Acute (4) RUQ pain Code(s): R10.11 - RIGHT UPPER QUADRANT PAIN Status: Acute <Jorge Alberto Latham - Last Filed: 11/30/17 07:04> Attending Addendum - Attending Addendum Date/Time: 11/30/17 2372 I personally evaluated the patient and discussed the management with Dr. Latham. I agree with the History, Examination, Assessment and Plan documented above with any addition or exceptions noted below. The patient has not completed her golytely this morning. She has been slowly drinking however and is tolerating it without vomiting. Will coordinate with GI to see if she will be able to have a scope. Pt with mild ruq and rlq tenderness to palpation but exam is improved from yesterday and the patient does states she feels a little better. Her mom was on the phone and states we need to check her appendix and gallbladder and I explained that we have checked these things and all imaging studies to date have been normal. If scope is negative, pt can discharge home as her pain is likely due to inflammation from pid and she is on appropriate treatment. <Estrella Montelongo - Last Filed: 11/30/17 12:40>
[2017-11-30] MEDS ORDERED: Fluconazole 100 MG TAB PO SCH (07:30)
[2017-11-30 08:07] LABS: #Eosinphils 0.1 thou/uL (0.0-0.7); #Lymphocytes 1.3 thou/uL (1.20-3.40); #Monocytes 0.4 thou/uL (0.11-0.59); #Neutrophils 1.9 thou/uL (1.40-6.50); %Basophils 0.6 % (0.0-1.0); %Eosinophils 2.3 % (0.0-10.0); %Lymphocytes 35.3 % (28.0-48.0); %Monocytes 10.4 % (0.0-4.0); %Neutrophils 51.4 % (31.0-61.0); Hemoglobin 12.8 g/dL (12.0-16.0); Mean Corpuscular HGB CONC 33.2 g/dL (32.0-36.0); Mean Corpuscular Hemoglobin 30.3 pg (25.0-35.0); Mean Corpuscular Volume 91.2 fl (77.0-87.0); Mean Platelet Volume 7.8 fL (7.4-10.4); Platelet Count 168 thou/uL (130-400); RBC Distribution Width 11.6 % (11.5-14.5); Red Blood Cell (RBC) Count 4.25 mill/uL (4.00-5.20); White Blood Cell (WBC) Count 3.6 thou/uL (4.8-10.8)
[2017-11-30] MEDS: Dicyclomine 10 MG CAP PO SCH ×3 (08:18→16:11)
[2017-11-30] MEDS: Metoclopramide 10 MG/10 ML UDCUP PO SCH ×3 (08:19→16:11)
[2017-11-30] MEDS: Polyethylene Glycol 3350 17 GM Packet PO SCH (08:21)
[2017-11-30] MEDS: Doxycycline 100 MG CAP PO SCH (08:21)
[2017-11-30 08:26] LABS: Anion Gap 12 mmol/L (10-20); BUN (Urea Nitrogen) Less than 4 mg/dL (7.0-18.7); Calc. Creatinine Clearance 89 mL/min (70-130); Calcium 9.5 mg/dL (7.8-10.44); Carbon Dioxide 26 mmol/L (22-29); Chloride 106 mmol/L (98-107); Estimated GFR-MDRD Greater than 90; Glucose 99 mg/dL (70-105); Potassium 3.3 mmol/L (3.5-5.1); Sodium 141 mmol/L (136-145)
[2017-11-30] MEDS ORDERED: PROPOFOL 200 MG/20 ML VIAL ONE (11:34)
--- NOTE | 2017-11-30 15:20 | OP ---
DATE OF PROCEDURE: 11/30/2017 GASTROINTESTINAL ENDOSCOPY NOTE SURGEON: Gadiel Wu M.D. GUEST ASSOCIATE SURGEON: None. PROCEDURES PERFORMED: 1. Esophagogastroduodenoscopy with biopsies. 2. Colonoscopy, diagnostic. INDICATIONS: 1. Right lower quadrant pain. 2. Right upper quadrant pain. MEDICATIONS: See anesthesia record. FINDINGS: After discussion of the risks, benefits and alternatives of the procedure, informed consen t was obtained and witnessed. Pre-endoscopic cardiopulmonary examination was satisfactory. Timeout was performed before sedation was achieved. Sedation was achieved with anesthesia assistance in the endoscopy unit. A Pentax adult upper endoscope was placed into the oropharynx and passed through the cricopharyngeus under direct visualization. The esophageal mucosa appeared normal throughout with a normal-appearing Z-line. The endoscope was passed into the stomach. Forward and retroflexed views of the entire gastric mucosa were obtained. There was some mild erosive gastritis in a patchy distri bution throughout the stomach just with few small erosions in the gastric antrum, body and fundus. I ntervening mucosa appeared normal. There were certainly no large ulcerations. Biopsies were obtaine d from the gastric antrum and body to rule out H. pylori infection. The endoscope was passed through the pylorus and into the first and second portions of the duodenum which appeared normal. The upper endoscope was then completely withdrawn and the patient was repositioned. Digital rectal exam was performed which was unremarkable. A Pentax adult colonoscope was inserted in to the anus and passed forward to the cecum in the usual fashion. The cecal base was identified by t he appendiceal orifice as well as the ileocecal valve. The terminal ileum was intubated and the ilea l mucosa appeared normal. The colonoscope was then slowly withdrawn in a gradual and circumferential manner with careful examination of the entire colonic mucosa. The quality of the prep was good. Th e colonic mucosa appeared normal throughout. There was no evidence of any erosions or ulcerations. No mucosal abnormalities. Retroflexion in the rectum was normal. The colonoscope was then completel y withdrawn and the patient allowed to recover. The patient tolerated the procedure well. There wer e no immediate post-procedure complications. IMPRESSION: 1. Mild erosive gastritis. This alone is not a sufficient explanation for the severity of the patie nt's reported pain. Biopsied to rule out Helicobacter pylori. 2. Otherwise, normal esophagogastroduodenoscopy. 3. Normal colonoscopy to the terminal ileum. RECOMMENDATIONS: 1. Daily proton pump inhibitor for 1 month. 2. Avoid nonsteroidal anti-inflammatory drugs. 3. Follow up pathology on the gastric biopsies. If positive for Helicobacter pylori, treat with tri ple therapy and confirm eradication. 4. Advance diet. GI will sign off at this time. Please call back if needed.
[2017-11-30] MEDS: Ondansetron ODT 4 MG TAB PO PRN (15:24)
[2017-11-30 17:04] VITALS: BP 115/81; TEMP 97.9
--- NOTE | 2017-12-01 15:22 | DIS-2 ---
DATE OF ADMISSION: 11/25/2017 DATE OF DISCHARGE: 11/30/2017 ADMITTING ATTENDING: Latasha Maloney M.D. DISCHARGE ATTENDING: Estrella Montelongo M.D. RESIDENT: Jorge Alberto Latham M.D., PGY1 CONSULTATIONS: Include SOFTWARE INTEGRATION DEVELOPER, Dr. Lundy and GI, Dr. Wu. PROCEDURES: Include an EGD and colonoscopy, which showed mild erosive gastritis and otherwise normal colonoscopy. IMAGING: On 11/25/2017, got an abdomen and pelvis CT, which showed, 1. Normal appendix. 2. Small amount of free fluid in the pelvis, likely physiologic in nature. 3. 11/25/2017, she got a pelvic ultrasound, which showed, a. No acute sonographic abnormality within the pelvis. b. Left ovarian follicular cyst measuring up to 1.4 cm. 4. Abdominal ultrasound on 11/26/2017 showed unremarkable right upper quadrant ultrasound. PRIMARY DIAGNOSES: Include, 1. Abdominal pain likely secondary to pelvic inflammatory disease versus ruptured cyst. 2. Right upper quadrant pain/right lower quadrant pain. 3. Anxiety. DISCHARGE MEDICATIONS: Include cefdinir 300 mg p.o. q.12 h. for 7 days, clotrimazole vaginal cream f or 3 days, Bentyl 10 mg p.o. q.i.d., vibramycin 100 mg p.o. b.i.d., Protonix 40 mg p.o. daily, and si methicone 80 mg p.o. daily. DISCONTINUED MEDICATIONS: Include IV morphine, Cutler and tramadol, also acetaminophen 650 mg p.o. q. 4 h., also she had a prescription from outside, which told her to continue her acetaminophen with cod eine 1-2 tablets p.o. q.6 hours and also told her to take ibuprofen as needed. HISTORY OF PRESENT ILLNESS AND BRIEF HOSPITAL COURSE: This is a 22-year-old that came in with a 2-da y history of abdominal pain that started after she felt like a pop in her pelvis and says that her pa in is localized to her right lower quadrant. She was seen at [facility], the day prior and had a negative workup there. She came in with worsening of the pain and came in reporting fevers at home of 102. Reports that her period was 2 weeks ago, said normally appears a 7-day along with mild cram ping. She did not have any vaginal discharge, dysuria, or diarrhea. When she got here, she did not have a recorded fever. They did a pelvic exam, which showed cervix did look infected and she did hav e cervical motion tenderness. At this time, we thought it was concerning for pelvic inflammatory dis ease, admitted her, started her on cefoxitin and doxycycline. We would also get a BILINGUAL INTERPRETER-3, which would grow out issac, negative for trichomonas, negative for gardnerella. UA only showed small leukocyte esterase and 4 to 6 white blood cells, but it was not a clean catch, it had 7 to 10 squamous epithel ials. We also checked a gonorrhea and chlamydia swab, PCR, which both would end up coming back negat elton as well when she came in, her initial CBC, her white blood cell count was 7.1 and her neutrophils were only at 52.9%, no abnormalities. AST, ALT were normal. Bilirubin was normal. Lipase was norm al. So, we started her on antibiotics, kept her, but she still seemed to have pretty diffuse abdomin al pain, so we kept her, she was only on scheduled Toradol and Tylenol at the time, still having very severe pain, so we ended up putting her on IV morphine. After checking on her throughout the day, s he was still having pains, so at this time we will put her on Cutler, came back and assessed her the n ext day. The next day again she was having severe pain in all 4 quadrants everywhere you touched her . Pain seemed to be out of proportion to the amount of pain medicine we had. So, at this time we go t a procalcitonin, which was negative. We would follow along with her labs. Her hemoglobin only gabe pped to 11.4, but she was on fluid as she was reporting vomiting. We got a urine culture, which maritza rider did grow back anything. After getting the BILINGUAL INTERPRETER-3 back, we did treat her with one time dose of Difluc an, but then also after 2 days of being on antibiotics and pain still not being well controlled. We are uncertain of what everything that was going on. All the imaging was negative. Procalcitonin was negative. GC was negative. UA does not positive. At this time, we consulted SOFTWARE INTEGRATION DEVELOPER, Dr. Lundy. He agreed to assess things. It was still pelvic inflammatory disease with the cervical motion tender ness and sign of infection. Said that she was on the appropriate antibiotics and recommend we contin ue the same plan. On the next day I saw her, she was still having pretty bad pain, I talked with her about that. This was probably just a severe infection. Pain was likely related to that and will ta ke a while to heal. I wanted to try and transition her to Tylenol and ibuprofen and tramadol to see if we can transfer her to oral meds that maybe she could go home. After switching her on these meds, reassessment in the afternoon, she again was having very severe pain, so at this time we switched he r back to the Cutler. We would also wanted to try and stop the Cutler, morphine because her respirator y rate was going down and her blood pressure was dropping that day on the when we assessed her a nd so, we will just thought that she was on too much narcotics and has been affecting that, so at thi s time, still having severe pain out of proportion. We would also eventually put her on simethicone, Bentyl, put her on Zofran as well. At this time, we decided to consult GI as our direction of the O B/PHOSPHATIC FERTILIZER SUPERVISOR as the pain was still not very well controlled. We consulted GI. They plan on doing an EGD an d colonoscopy on her, but yet she was not able to do the procedure due to intractable vomiting. On alking to the nurse, she says that she was vomiting, but there was never really any vomitus recorded in the bags per nursing and said that she was only drinking a little bit. At this time, Dr. Wu al ked with the family and said it was important for her to finish all the prep, so we would keep her on e more day to try and redo the prep. We added on promethazine for her nausea and vomiting. At this time on Friday, she went in for EGD and colonoscopy, which showed the erosive gastritis and Dr. Wu put her on Protonix. At this time, the patient was feeling a little bit better and was ready to go h ome. It should be noted that we were concerned also patient does have some underlying anxiety per e past medical history. Possibly again as GI noted in their notes that pain was out of proportion. We think that there may have been some underlying somatic abdominal pain related with her. We still suspect that she had some sort of pelvic inflammatory disease, but she was on the right antibiotics a nd we will continue the right antibiotics and discharge. Again, we talked with her one day about any stressors or any stress going on at family, going on at work, and going on in her life, she denied a nything stressing her out or any concern for severe anxiety or depression at this time. We did again think that there were some somatic abdominal pain related to this pelvic inflammatory disease. At t his time, we will discharge her home. DISPOSITION: Stable. DISCHARGE LOCATION: Home. ACTIVITY: Activity as tolerated. DIET: Regular diet. FOLLOWUP: We will need to follow up with her primary care doctor within 14 days for hospital followu alexis
== END 2017-11-30 18:02 | disposition home or self-care (01) ==
LOC: ERS 18:06 → T4-A 23:07
PROVIDERS: ADMIT Family Medicine; ATTEND Family Medicine
PROC: 0DJD8ZZ Inspection of Lower Intestinal Tract, Via Natural or Artificial Opening Endoscopic (ICD-10-PCS; principal; 2017-11-30)
PROC: 0DB78ZX Excision of Stomach, Pylorus, Via Natural or Artificial Opening Endoscopic, Diagnostic (ICD-10-PCS; 2017-11-30)
DX: R10.31 Right lower quadrant pain (principal); R10.11 Right upper quadrant pain; K31.9 Disease of stomach and duodenum, unspecified; F41.9 Anxiety disorder, unspecified; R50.9 Fever, unspecified; R11.2 Nausea with vomiting, unspecified; N73.9 Female pelvic inflammatory disease, unspecified; K29.60 Other gastritis without bleeding; Z79.2 Long term (current) use of antibiotics; Z88.0 Allergy status to penicillin; Z98.818 Other dental procedure status
CPT/HCPCS: 36415; 74177; 76705; 76856; 80048; 80053; 81003; 81015; 83690; 84145; 84703; 85025; 85652; 86780; 87086; 87389; 87480; 87491; 87510; 87591; 87660; 88305; 88312; 96361; 96365; 96366; 96372; 96374; 96375; 96376; A4216; G0378; J0694; J1885; J2270; J2550; J2704; J7050; Q0162

== ENCOUNTER 2018-01-30 20:04 | Emergency (ER) | payer SELFPAY ==
[2018-01-30 20:49] LABS: Bilirubin Negative (Negative); Blood, Urine Negative (Negative); Clarity CLOUDY (Clear); Glucose, Urine (Dipstick) Negative (Negative); Leukocyte Moderate (Negative); Nitrite Negative (Negative); Pregnancy Test - Urine (BHCG) Negative (Negative); Pregu Control Background? CLEAR/WHITE (CLR/WHITE); Pregu Control Bar Appear? YES (CONTROL BAR); Protein, Urine (Dipstick) 30 mg/dL (Neg-Trace); Specific Gravity 1.029 (1.002-1.036); Specific Gravity, Urine 1.029 (1.002-1.036); pH, Urine 6.5 (5.0-9.0)
[2018-01-30 20:51] LABS: Bacteria/HPF 1+ HPF (None Seen); WBC/HPF 21-50 HPF (0-3)
[2018-01-30 20:52] LABS: Hyaline Casts/LPF 0-3 HYALINE CAST LPF (0-3 Hyaline); Pathc Cast-AUWi Flag 3.63 (0-2.49)
[2018-01-30] MEDS ORDERED: Lidocaine 1% PF 5 ML VIAL ONE (21:08)
[2018-01-30] MEDS ORDERED: cefTRIAXone\\ROCEPHIN 250 MG VIAL ONE (21:08)
[2018-01-30] MEDS ORDERED: Azithromycin 250 MG TAB ONE (21:08)
[2018-02-02 00:49] LABS: Chlamydia by PCR Not Detected (NotDetected); GC by PCR Not Detected (NotDetected)
== END 2018-01-30 21:51 | disposition home or self-care (01) ==
LOC: ERS 20:04
DX: N72 Inflammatory disease of cervix uteri (principal); F41.9 Anxiety disorder, unspecified
CPT/HCPCS: 81003; 81015; 81025; 87086; 87480; 87491; 87510; 87591; 87660; 96372; J0696; J2001

== ENCOUNTER 2019-03-09 07:54 | Emergency (ER) | payer MEDICAID, SELFPAY ==
[2019-03-09] MEDS ORDERED: diphenhydrAMINE 50 MG/ML VIAL ONE (08:26)
[2019-03-09] MEDS ORDERED: Metoclopramide HCl 10 MG/2 ML VIAL ONE (08:26)
[2019-03-09 08:40] LABS: #Basophils 0.1 thou/uL (0.0-0.2); #Lymphocytes 1.9 thou/uL (1.20-3.40); #Monocytes 0.4 thou/uL (0.11-0.59); %Basophils 0.8 % (0.0-1.0); %Eosinophils 0.3 % (0.0-10.0); %Lymphocytes 29.7 % (21.0-51.0); %Monocytes 5.8 % (0.0-10.0); %Neutrophils 63.4 % (42.0-75.0); Hemoglobin 14.1 g/dL (12.0-16.0); Mean Corpuscular HGB CONC 32.3 g/dL (32.0-36.0); Mean Corpuscular Hemoglobin 30.2 pg (27.0-31.0); Mean Corpuscular Volume 93.5 fL (78.0-98.0); Mean Platelet Volume 8.2 fL (7.4-10.4); Platelet Count 191 thou/uL (130-400); RBC Distribution Width 11.6 % (11.5-14.5); Red Blood Cell (RBC) Count 4.67 mill/uL (4.20-5.40); White Blood Cell (WBC) Count 6.4 thou/uL (4.8-10.8)
[2019-03-09 08:56] LABS: BHCG - Serum Negative (NEGATIVE); Pregs Control Background? CLEAR/WHITE (CLR/WHITE); Pregs Control Bar Appear? YES (CONTROL BAR)
--- NOTE | 2019-03-09 08:56 | CT ---
CT BRAIN WITHOUT CONTRAST: HISTORY: Altered mental status. Syncope. FINDINGS: No evidence of infarct, hemorrhage, midline shift, or abnormal extraaxial fluid collections is seen. The ventricular size is normal, and the basilar cisterns are patent. The bony calvarium is intact. The visualized paranasal sinuses and mastoid air cells are well aerated. IMPRESSION: No CT evidence of acute intracranial process. POS: OFF
--- NOTE | 2019-03-09 08:59 | RAD ---
1 view chest: CLINICAL HISTORY: Syncope COMPARISON: 12/31/2016 FINDINGS: There is no focal consolidation, effusion, or pneumothorax. Cardiac silhouette is normal in size. No acute osseous abnormality. IMPRESSION: No focal consolidation.
[2019-03-09 09:06] LABS: ALT (SGPT) Less than 7 U/L (8-55); AST (SGOT) 15 U/L (5-34); Acetaminophen Less than 6.0 mcg/mL (10.0-30.0); Albumin 4.3 g/dL (3.5-5.0); Alcohol Less than 10 mg/dL (Less than 10); Alkaline Phosphatase 64 U/L (40-150); Anion Gap 13 mmol/L (10-20); BUN (Urea Nitrogen) 7 mg/dL (7.0-18.7); Bilirubin, Total 0.5 mg/dL (0.2-1.2); Calc. Creatinine Clearance 0 mL/min (70-130); Calcium 9.8 mg/dL (7.8-10.44); Carbon Dioxide 24 mmol/L (22-29); Chloride 106 mmol/L (98-107); Estimated GFR-MDRD Greater than 90; Globulin 3.2 g/dL (2.4-3.5); Glucose 89 mg/dL (70-105); Potassium 3.7 mmol/L (3.5-5.1); Protein, Total 7.5 g/dL (6.0-8.3); Salicylate Less than 8.0 mg/dL (15.0-30.0); Sodium 139 mmol/L (136-145)
[2019-03-09] MEDS ORDERED: Ketorolac Tromethamine 30 MG/ML VIAL ONE (09:59)
[2019-03-09 10:49] LABS: Bilirubin Negative (Negative); Blood, Urine Negative (Negative); Clarity Turbid (Clear); Glucose, Urine (Dipstick) Normal (Negative); Leukocyte 500 Leu/uL (Negative); Mucous/LPF 1+ LPF (<2+); Nitrite Negative (Negative); Protein, Urine (Dipstick) 20 mg/dL (Neg-Trace); Squamous Epithelial 21-50 HPF (0-3); Urobilinogen Normal mg/dL (Less than 2); WBC/HPF 21-50 HPF (0-3)
[2019-03-09 10:55] LABS: Barbiturates Screen Detected (NotDetected); Medtox Reader # READER 1
[2019-03-09 10:56] LABS: Amphetamine Not Detected (NotDetected); Benzodiazepine Screen Not Detected (NotDetected); Cocaine Metabolite Screen Not Detected (NotDetected); Medtox Control Line Valid? VALID (VALID); Methadone Not Detected (NotDetected); Methamphetamine Not Detected (NotDetected); Opiate Screen Not Detected (NotDetected); Oxycodone Screen Not Detected (NotDetected); Phencyclidine (PCP) Not Detected (NotDetected); THC/Cannabinoid Screen Not Detected (NotDetected); Tricyclic Screen Not Detected (NotDetected)
[2019-03-09 11:02] LABS: Bacteria/HPF 2+ HPF (None Seen); Trichomonas/HPF 1+ HPF (None Seen)
== END 2019-03-09 11:46 | disposition home or self-care (01) ==
LOC: ERS 07:54
DX: R56.9 Unspecified convulsions (principal); A59.01 Trichomonal vulvovaginitis; N39.0 Urinary tract infection, site not specified; F41.9 Anxiety disorder, unspecified
CPT/HCPCS: 36415; 70450; 71045; 80053; 80306; 80307; 81003; 81015; 82550; 84146; 84703; 85025; 85379; 93005; 96365; 96375; J1200; J1885; J2765

== ENCOUNTER 2020-05-10 21:31 | Emergency (ER) | payer BC ==
[2020-05-10 22:26] LABS: #Lymphocytes 1.6 thou/uL (1.20-3.40); #Monocytes 0.5 thou/uL (0.11-0.59); #Neutrophils 4.3 thou/uL (1.40-6.50); %Basophils 0.7 % (0.0-1.0); %Eosinophils 0.2 % (0.0-10.0); %Lymphocytes 24.6 % (21.0-51.0); %Monocytes 7.1 % (0.0-10.0); %Neutrophils 67.4 % (42.0-75.0); Hemoglobin 13.5 g/dL (12.0-16.0); Mean Corpuscular HGB CONC 33.5 g/dL (32.0-36.0); Mean Corpuscular Hemoglobin 30.6 pg (27.0-31.0); Mean Corpuscular Volume 91.6 fL (78.0-98.0); Mean Platelet Volume 7.9 fL (7.4-10.4); Platelet Count 206 thou/uL (130-400); RBC Distribution Width 11.9 % (11.5-14.5); White Blood Cell (WBC) Count 6.3 thou/uL (4.8-10.8)
[2020-05-10 22:34] LABS: BHCG - Serum Negative (NEGATIVE); Pregs Control Background? CLEAR/WHITE (CLR/WHITE); Pregs Control Bar Appear? YES (CONTROL BAR)
[2020-05-10 22:39] LABS: ALT (SGPT) 23 U/L (8-55); AST (SGOT) 18 U/L (5-34); Albumin 4.1 g/dL (3.5-5.0); Alkaline Phosphatase 67 U/L (40-110); Anion Gap 13 mmol/L (10-20); BUN (Urea Nitrogen) 7 mg/dL (7.0-18.7); Bilirubin, Total 0.5 mg/dL (0.2-1.2); Calc. Creatinine Clearance 0 mL/min (70-130); Calcium 9.1 mg/dL (7.8-10.44); Carbon Dioxide 22 mmol/L (22-29); Chloride 108 mmol/L (98-107); Estimated GFR-MDRD Greater than 90; Globulin 2.9 g/dL (2.4-3.5); Glucose 94 mg/dL (70-105); Potassium 4.2 mmol/L (3.5-5.1); Sodium 139 mmol/L (136-145)
[2020-05-10] MEDS ORDERED: Acetaminophen 500 MG TAB ONE (23:03)
[2020-05-10] MEDS ORDERED: Metoclopramide HCl 10 MG/2 ML VIAL ONE (23:04)
[2020-05-10] MEDS ORDERED: diphenhydrAMINE 50 MG/ML VIAL ONE (23:04)
[2020-05-11] MEDS ORDERED: levETIRAcetam 500 MG TAB PO SCH (00:15)
== END 2020-05-11 00:39 | disposition home or self-care (01) ==
LOC: ERS 21:31
DX: G43.909 Migraine, unspecified, not intractable, without status migrainosus (principal); R56.9 Unspecified convulsions; F41.9 Anxiety disorder, unspecified; Z79.899 Other long term (current) drug therapy
CPT/HCPCS: 36415; 80053; 80177; 84703; 85025; 96365; 96375; J1200; J2765